=== PATIENT | female | born 1995 | race Caucasian/White ===

== ENCOUNTER 2021-01-08 20:22 | Emergency (ER) | payer OTHER ==
[~2021-01-08] VITALS: Ht 165.1 cm; Wt 90.7 kg
[2021-01-08 20:33] VITALS: BP_SYST 150
[2021-01-08] MEDS ORDERED: AMOX-426 PO (21:01)
[2021-01-08 21:04] VITALS: BP_SYST 150
== END 2021-01-08 21:03 | disposition home or self-care (01) ==
LOC: SED 20:22
DX: S60.411A Abrasion of left index finger, initial encounter (principal); W54.0XXA Bitten by dog, initial encounter; Y93.89 Activity, other specified; Y92.89 Other specified places as the place of occurrence of the external cause; Y99.8 Other external cause status
CPT/HCPCS: 99283